=== PATIENT | male | born 1970 | race Caucasian/White ===

== ENCOUNTER 2024-12-14 20:28 | Inpatient (IN) | payer SELFPAY ==
--- NOTE | ~2024-12-14 | XR_ITS ---
XR chest 1V portable Ordering provider: Orlando George MD History: 54 years Male with . cp . Comparison: None. FINDINGS: MEDIASTINUM: The cardiac silhouette is slightly enlarged. Congestive [place]. LUNGS: No effusions or pneumothorax. Bilateral interstitial thickening. OTHER: No free air under the diaphragm. IMPRESSION: Cardiomegaly with congestive [place]. Interstitial thickening bilaterally which may indicate pneumonitis versus edema. Clinical correlation advised. Reviewed, dictated and finalized at location A. TABLE OPERATOR IMPRESSION: Cardiomegaly with congestive [place]. Interstitial thickening bilaterally which may indicate pneumonitis versus edema . Clinical correlation advised.
--- NOTE | 2024-12-14 20:30 | ECG_ITS ---
Test Date: 2024-12-14 20:34:52 Measurements Intervals [place] Rate: 62 P: 46 [place]: 153 QRS: 32 QRSD: 122 T: 41 QT: 377 QTc: 386 Interpretive Statements SINUS RHYTHM ACUTE INFEROLATERAL ST SEGMENT ELEVATION CA ABNORMAL ECG No previous ECG available for comparison Electronically Signed On 12-15-2024 15:41:24 ASSISTANT SUPERINTENDENT FOR CURRICULUM by Simba Barakat M.D.
--- NOTE | 2024-12-14 20:42 | ED.GENADULT ---
HPI - General Adult General Chief complaint: Chest Pain Stated complaint: CP Time Seen by Provider: 12/14/24 20:45 History of Present Illness HPI narrative: Patient is a 54-year-old gentleman presents emergency department chief complaint of chest pain. Patient reports that his episode today started about 15 minutes prior to arrival patient describes as heaviness in the middle portion of his chest reports he has a tingling sensation in his left arm and into his left jaw the patient states that he has no prior history of AK does report that he smokes cigarettes and reports that yesterday he had an episode at home that lasted for a few minutes mom similar to this that resolved the patient states that the pain is continual at this time not resolved by anything. Related Data Allergies Allergy/AdvReac Type Severity Reaction Status Date / Time No Known Allergies Allergy Verified 12/14/24 20:28 Review of Systems Review of Systems: A 10 system review of systems was completed on the patient and is negative except for what is stated in the HPI. Nursing and ancillary documentation was reviewed. Exam Narrative: GENERAL: Well-appearing, well-nourished, and in no acute distress. HEAD: Normocephalic, atraumatic. EYES: PERRLA and EOMI. ENT: Nares clear, no rhinorrhea or epistaxis. Mucous membranes moist. NECK: Supple. CHEST: Clear to auscultation. No respiratory distress. HEART: Regular rate and rhythm. No murmur heard. Normal peripheral pulses. ABDOMEN: Soft, nontender, nondistended, normal active bowel sounds. EXTREMITIES: Normal range of motion. No edema. SKIN: Warm, dry, no rash. NEURO: No focal deficits. Alert and oriented x3. PSYCH: Normal mood and affect. Medical Decision Making [facility] Narrative Medical decision making narrative: Differential diagnosis includes ST-elevation AK, ACS, NSTEMI EKG showed evidence of acute ST-elevation AK. The case was discussed with interventional cardiology who will be in bound the patient was given 324 mg of aspirin 180 of Brilinta and 5000 units of heparin per Cardiology. The patient was given 4 mg of morphine for pain Critical Care Time Critical Care Time Critical Care Time: Yes Total Critical Care Time: 35 Discharge Plan Discharge Clinical Impression: Acute ST elevation myocardial infarction Patient Language: Romansh Follow-up/Referrals: PHYSICIAN NOT ON STAFF,NONSTAFF [Primary Care Provider] -
[2024-12-14 20:44] VITALS: BP 148/107; PULSE 81; PULSE 85; RESP 11; O2SAT 100
--- OUTSIDE RECORDS SUMMARY | 2024-12-14 20:44 | XMS_ITS | Continuity of Care Document ---
Author Organization [facility] nters Address [address] [place] [address] Phone Care Team Providers Care Etch Operator Semiconductor Wafers Name Role Phone Ramin Bethea MD Unavailable Unavailable Allergies, Adverse Reactions, Alerts Substance Reaction Status Criticality No Known Allergies Active No Inform ation Medications Medication Instructions Dosage Effective Dates (start - stop) Status Comments TobraDex 0.3 %-0.1 % eye ointment apply by ophthalmic route 2 times every day a small amount onto the affected eyelids(s) - No Longer Active Procedures Procedure Date OV EST MODERATE PREV VISIT, [facility], AGE 40-64 Advance Directives Directive Yes / No Effective Date File Name No Information Encounters Encounter Description Practice Location Reason(s) For Visit Diagnoses Date Provider Providers Copied on Encounter [facility], [address], [place], [place], [id number], tel:[phone] [facility], [facility] No Information 1 [place]. [facility]0 [facility], [id number] [address] [place] [address], [address] [place] [address], [place]. [phone] OV EST MODERATE [facility], [address], [place], [place], [id number], tel:[phone] [facility] LS stye on RLL (chief complaint) Hordeolum externum of right lower eyelid [address] [place] [address], [id number] [address] [place] [address], [address] [place] [address], [place]. tel:[phone] PREV VISIT, NEW, AGE 40-64 [facility], [address], [place], [place], [id number], [place] [phone] [facility] LS wellness exam (chief complaint)He alth Maintenance (chief complaint) Encounter for wellness examinationScre ening for colon cancerSmoker [place]. [address] [facility], [id number] 0NS, [place], [place], [id number], [place]. tel:[phone] Family History Family Member Type Diagnosis Age At Onset No Information Payers Payer name Insurance type Covered democrat ID Man yang(s) Sliding Fee A [place] [id number] Social History Type Description Quantity Date Captured Comments Alcohol Use Details Unknown Caffeine Use Details Unknown Tobacco Use Status Smoking Status No Information Sex Male Sexual Orientation Straight or heterosexual Gender Identity Male Chief Complaint And Reason For Visit No Information Reason For Referral Reason For Referral No Information Plan Of Treatment Date Type Action Status Goal HIV Ab. Due on d ue Goal BMP. Due on due Goal Colonoscopy. Due on due Goal Colon Screening (fecal occul t). Due on due Goal Dental Exam. Due on due Goal COPD SCREENING. Due on due Goal PHQ-9. Due on du e Goal Hep C Ab. Due on due Goal Colon Screening (fecal occul t). Due on due Goal Colonoscopy. Due on due Goal HIV Ab. Due on d ue Goal Hep C Ab. Due on due Goal PHQ-9. Due on du e Goal COPD SCREENING. Due on due Goal Dental Exam. Due on due Goal Dental Exam. Due on due Goal Colon Screening (fecal occul t). Due on due Goal Colonoscopy. Due on due Goal HIV Ab. Due on d ue Goal COPD SCREENING. Due on due Goal PHQ-9. Due on du e Goal Hep C Ab. Due on due Goal Tobacco cessation counseling completed History Of Present Illness Encounter Date Complaint History Of Prese nt Illness stye on RLL The 50 year old male presents for evaluation of stye on RLL in the right eye. Started about a week ago, +Crust in the morning. wellness exam pt requesting pr ostate test. Wants check up no regular PCP, no medical exam for years.No significant PMH/PSH. No active c/o. positive smoker < 1ppd, neg ETOH. Goes to gym 3-4 times a week, regular aerobic exercise program. general diet.Nocturia x 1 Health Maintenance vaccines duec olon due Functional Status Date Functional Assessmen t No Information Instructions Date Instruction Carter gregory Return in 1-2 weeks for a follow-up exam with Dr. Weston Related to Hordeolum externum of right lower eyelid Impression/Plan Related to Horde olum externum of right lower eyelid Advised about eating nutritious foods, getting adequate sleep, limiting screen time on phone, tablets and TV to 2 hours maximum per day, regular aerobic exercise, avoiding cigarettes, alcohol and drugs, illegal supplements, wearing seat belts, and practicing safe sex. Related to Encounter for wellness examination Assessments Type Assessment Date No Information Patient Care Teams Name Effective Dates (start - stop) Status Members No Information
--- OUTSIDE RECORDS SUMMARY | 2024-12-14 20:44 | XMS_ITS | Patient Health Record ---
Author Organization [facility] Address [address] [place] [address] Support Name Relationship Address Phone POLLYTERESA KOKO Emergency Contact [address] [place] [address] Fredy Hemphill Guarantor Unknown [phone] Allergies No Known Allergies Reason For Referral No Information Social History Tobacco Use: Social History Observation Description Date Details (start date - stop date) Current Smoker NA - NA Smoking Question Answer Notes Are you a: current smoker Plan Of Treatment No Information
[2024-12-14 20:47] VITALS: O2SAT 99
[2024-12-14 20:47] LABS: Basophils Percent Auto 0.2 % (0.2-1.2); Eosinophils Absolute Auto 0.1 K/mm3 (0-0.3); Eosinophils Percent Auto 0.6 % (0-4.4); Hematocrit 43.7 % (42.0-52.0); Immature Granulocyte Absolute 0.04 K/mm3 (0.00-0.031); Immature Granulocyte Percent A 0.3 % (0-0.5); Lymphocytes Absolute Auto 4.82 K/mm3 (0.9-3.2); Lymphocytes Percent Auto 37.9 % (18.3-44.2); Mean Corpuscular HGB Conc 34.3 g/dl (32-36); Mean Corpuscular Hemoglobin 29.6 pg (26-34); Mean Corpuscular Volume 86.4 fl (80-100); Mean Platelet Volume 11.6 fl (7.4-10.4); Monocytes Absolute Auto 0.9 K/mm3 (0.1-0.6); Monocytes Percent Auto 7.3 % (2.6-8.5); Neutrophils Absolute Auto 6.8 K/mm3 (1.3-6.7); Neutrophils Percent Auto 53.7 % (45.5-73.1); Platelet Count Result 223 k/mm3 (150-375); Red Blood Count 5.06 M/mm3 (4.6-6.20); Red Cell Distribution Width 12.1 % (11.5-14.5); White Blood Count 12.7 K/mm3 (4.5-10.0)
[2024-12-14] MEDS: ASPIRIN 81 MG CHEWABLE TABLET 324 MG PO (20:47)
[2024-12-14] MEDS: MORPHINE SULFATE (*CRX) 4 MG/ML INJ (20:47)
[2024-12-14] MEDS: HEPARIN SODIUM 5,000 UNITS/ML VIAL 5000 UNITS IV PUSH (20:51)
[2024-12-14] MEDS: TICAGRELOR 90 MG TABLET 180 MG PO (20:51)
[2024-12-14 20:58] LABS: Alanine Aminotransferase 52 U/L (6-50); Albumin Level 4.8 g/dL (3.5-5.1); Alkaline Phosphatase 111 U/L (38-126); Anion Gap 14 mmol/L (4-12); Aspartate Amino Transferase 37 U/L (17-59); Bilirubin,Total 0.5 mg/dL (0.2-1.3); Blood Urea Nitrogen 17 mg/dL (9-20); Calcium 9.6 mg/dL (8.4-10.2); Carbon Dioxide 25 mmol/L (22-30); Chloride 103 mmol/L (98-107); Estimated CRCL calculation 87 ml/min; Estimated Glomerular Filt Rate > 60; Glucose 123 mg/dL (65-110); INR 0.9; Lipase 78 U/L (23-300); Potassium 3.4 mmol/L (3.4-5.0); Prothrombin Time 11.9 Seconds (11.1-14.7); Sodium 142 mmol/L (137-145)
[2024-12-14 20:59] LABS: Partial Thromboplastin Time 22.8 Seconds (22.3-36.8)
[2024-12-14] MEDS: MORPHINE SULFATE (*CRX) 4 MG/ML INJ IV PUSH (21:04)
[2024-12-14] MEDS: HYDROmorphone HCL INJ (*CRX) 1 MG/ML SYR IV PUSH (21:23)
--- NOTE | 2024-12-14 21:34 | PM.IMHP ---
H&P: HPI History of Present Illness Date/Time: 12/14/24 21:34 Chief Complaint: Chest pain Narrative: Fredy is a 54 year old male smoker who presented to [facility] ER with chest pain that began 15 minutes prior to presentation. EKG in the ED shows inferolateral ST elevations with reciprocal depressions. STEM team activated. Review of Systems Cardiovascular: Cardiovascular: Reports as per HPI Meds Home Medications and Allergies Allergies Allergy/AdvReac Type Severity Reaction Status Date / Time No Known Allergies Allergy Verified 12/14/24 20:28 Vital Signs Vital Signs - 24 hr 12/14/24 20:44 12/14/24 20:44 12/14/24 20:44 Pulse Rate 85 81 Respiratory Rate 11 L Blood Pressure 148/107 H Pulse Oximetry 100 100 Oxygen Delivery Room Air Oxygen Flow Rate 12/14/24 20:47 Pulse Rate Respiratory Rate Blood Pressure Pulse Oximetry 99 Oxygen Delivery Nasal Cannula Oxygen Flow Rate 2 Exam Const: General: no acute distress Resp: Effort & Inspection: normal respiratory effort Cardio: Rate: regular rate Rhythm: regular rhythm Skin: General skin exam: normal color Neuro: Speech: normal speech Psych: Mental Status: mental status grossly normal Affect: normal affect H&P: Results Labs Labs: Short CBC 12/14/24 Range/Units 20:42 WBC 12.7 H (4.5-10.0) K/mm3 Hgb 15.0 (14.0-18.0) g/dL Hct 43.7 (42.0-52.0) % Plt Count 223 (150-375) k/mm3 BMP 12/14/24 20:42 Sodium 142 Potassium 3.4 Chloride 103 Carbon Dioxide 25 BUN 17 Creatinine 0.97 Glucose 123 H Calcium 9.6 Cardiac Enzymes 12/14/24 Range/Units 20:42 Troponin I 0.039 H* (0.000-0.034) ng/mL Liver Function 12/14/24 Range/Units 20:42 Total Bilirubin 0.5 (0.2-1.3) mg/dL AST 37 (17-59) U/L ALT 52 H (6-50) U/L Alkaline Phosphatase 111 (38-126) U/L Albumin 4.8 (3.5-5.1) g/dL Assessment and Plan Assessment and plan (1) Acute ST elevation myocardial infarction: Code(s): I21.3 - ST elevation (STEMI) myocardial infarction of unspecified site Status: Acute Assessment and Plan: Proceed with emergent cardiac catheterization. ASA, Brilinta, Heparin bolus given in the ED. Further recommendations and plan pending results of [facility].
--- NOTE | 2024-12-14 21:36 | P.SEDATION_ITS ---
Moderate Sedation Note-Pt Data Patient Data Diagnosis: STEMI Present Complaint: STEMI Procedure to be performed/Plan: Primary PCI Allergies Allergy/AdvReac Type Severity Reaction Status Date / Time No Known Allergies Allergy Verified 12/14/24 20:28 Current Medications: Active Medications Hydromorphone HCl (Hydromorphone Hcl Inj (*Crx) 1 Mg/Ml Syr) 1 mg IV PUSH ONCE STA Stop: 12/14/24 21:22 Last Admin: 12/14/24 21:23 Dose: 1 mg Perflutren Lipid Microsphere (Perflutren Lipid Microspheres 1.5 Ml Vial Diluted To 10 Ml Total Volume) 0 ml IV PUSH ONCE PRN; Protocol PRN Reason: adequate visualization Stop: 12/17/24 21:32 Sedation/Anesthesia: No previous sedation/anesthesia problems (including family history). Mod Sed Physical Exam Physical Exam Pre Procedural Exam: Normal: Lungs, Heart Rate, Heart Rhythm, Extremities and Skin and Variation: Appearance (In no acute distresss) Hours since solid foods: 0 Hours since liquid intake: 0 Mallampati Classification: class III Internal Medicine - PN: Obj Da Vital Signs Vital Signs: Vital Signs - 24 hr 12/14/24 20:44 12/14/24 20:44 12/14/24 20:44 Pulse Rate 85 81 Respiratory Rate 11 L Blood Pressure 148/107 H Pulse Oximetry 100 100 Oxygen Delivery Room Air Oxygen Flow Rate 12/14/24 20:47 Pulse Rate Respiratory Rate Blood Pressure Pulse Oximetry 99 Oxygen Delivery Nasal Cannula Oxygen Flow Rate 2 Meds/Results Medications: Active Medications Generic Name Dose Route Start Last Admin Trade Name Freq PRN Reason Stop Dose Admin Hydromorphone HCl 1 mg 12/14/24 21:21 12/14/24 21:23 Hydromorphone Hcl Inj (*Crx) 1 Mg/Ml Syr IV PUSH 12/14/24 21:22 1 mg ONCE STA Administration Perflutren Lipid Microsphere 0 ml 12/14/24 21:32 Perflutren Lipid Microspheres 1.5 Ml Vial Diluted To 10 Ml Total Volume IV PUSH 12/17/24 21:32 ONCE PRN adequate visualization Protocol Radiology Results: ITS Impressions Chest X-Ray 12/14/24 20:56 IMPRESSION: Cardiomegaly with congestive [place]. Interstitial thickening bilaterally which may indicate pneumonitis versus edema. Clinical correlation advised. Labs 12/14/24 20:42 12/14/24 20:42 Labs: Laboratory Results - last 24 hr 12/14/24 20:42 WBC 12.7 H RBC 5.06 Hgb 15.0 Hct 43.7 MCV 86.4 MCH 29.6 MCHC 34.3 RDW 12.1 Plt Count 223 MPV 11.6 H Immature Gran % (Auto) 0.3 Neut % (Auto) 53.7 Lymph % (Auto) 37.9 [place] % (Auto) 7.3 Eos % (Auto) 0.6 Baso % (Auto) 0.2 Lymph # (Auto) 4.82 H [place] # (Auto) 0.9 H Eos # (Auto) 0.1 Baso # (Auto) 0.0 Abs Immat Gran (auto) 0.04 H Absolute Neuts (auto) 6.8 H Absolute Nucleated RBC 0.000 Nucleated RBC % 0.0 PT 11.9 INR 0.9 APTT 22.8 Sodium 142 Potassium 3.4 Chloride 103 Carbon Dioxide 25 Anion Gap 14 H BUN 17 Creatinine 0.97 Estim Creat Clear Calc 87 Estimated GFR > 60 Glucose 123 H Calcium 9.6 Total Bilirubin 0.5 AST 37 ALT 52 H Alkaline Phosphatase 111 Troponin I 0.039 H* Total Protein 8.0 Albumin 4.8 Lipase 78 ASA Classification/Sedation ASA Classification/Sedation ASA Class: IV Emergent: Yes Risks: Risks, benefits and alternatives explained and patient/family accepted plan for sedation. Patient re-evaluated immediately prior to sedation.
[2024-12-14 21:47] LABS: Cholesterol 271 mg/dL (0-200); HDL Direct 33 mg/dL; Triglycerides 500 mg/dL (<150)
[2024-12-14 21:49] LABS: Hemoglobin A1C 5.7 % (<5.7)
[2024-12-14 21:57] LABS: LDL Cholesterol Direct 137 mg/dL
--- NOTE | 2024-12-14 23:01 | WPDCARDPROC ---
Cardiac Cath Procedure Note Date of procedure:: 12/14/24 Performing physician:: CATHETERIZATION LABORATORY REPORT Procedure Date: 12/14/2024 Electrode Cleaner: Amaury Lu M.D., [facility]? Referring Physician: Benitez George. ([facility]) Anesthesia: Versed and Fentanyl were ordered and given in my presence at 21:41, procedure ended at 22:53. Supervision of nurse monitored moderate sedation with Versed and Fentanyl was provided for 72 minutes. Total of Versed 1mg and Fentanyl 50mcg were administered by the Sales & Service Associate ANDERSON Laguerre. Pre-op Diagnosis: Inferolateral STEMI Post-op Diagnosis: 1. 100% acute thrombotic occlusion in the proximal LCX with severe stenosis in the mid portion s/p successful IVUS-guided PCI with DIDI x 1 in the mid LCX (4.0mm x 30mm Orsiro DIDI. Mid portion of stent post dilated to 4.5mm and proximal portion of the stent post-dilated to 5.0mm). 2. Proximal LAD with hazy calcific 50-60% moderate stenosis. There is a small caliber diagonal branch at the level of the LAD stenosis that has significant ostial disease, however, given small size of diagonal, recommend medical management of this branch vessel disease. 3. Elevated left ventricular end-diastolic pressure of 42mmHg. 4. During diagnostic portion of angiogram prior to revascularization, patient went into VFIB. Shocked successfully x 1. Procedure(s): 1. Moderate sedation 2. Ultrasound-guided access of the right radial artery 3. Coronary angiography 4. Left heart cath 5. IVUS of LCX 6. PCI of the LCX with DIDI x 1 -- 4.0mm x 30mm Orsiro DIDI. Mid portion of stent post dilated to 4.5mm and proximal portion of the stent post-dilated to 5.0mm Access Site: Right radial artery Brief History and Clinical Indications: Patient is a 54 year old male who is referred for emergent primary PCI for inferolateral STEMI. All risks, benefits and alternatives to left heart catheterization with or without percutaneous coronary intervention was discussed at length with the patient. Risk of complications including but not limited to bleeding, infection, arrhythmia, stroke, worsening kidney function, blood loss, groin hematoma, limb loss, emergency coronary artery bypass grafting, and even were discussed with the patient and all questions were answered. The patient understood and wished to proceed. Time out called, patient name, date of , medical record number, allergies, procedure performed, identify Electrode Cleaner, patient and staff member concurred with accurate data, procedure carried on. Findings: LEFT HEART CATHETERIZATION FINDINGS: 1. Left main: The left main coronary artery is widely patent without any significant obstructive disease. 2. Left anterior descending: Proximal LAD with hazy calcific 50-60% moderate stenosis. There is a small caliber diagonal branch at the level of the LAD stenosis that has significant ostial disease 3. Left circumflex: The left circumflex artery is 100% occluded in the proximal portion. 4. Right coronary artery: The RCA has mild luminal irregularities without any significant obstructive angiographic disease. The RCA is the dominant vessel. 5. Left ventricle: A. End-diastolic pressure 42 mmHg. B. LV gram deferred. C. No significant gradient across aortic valve on catheter pullback. Description of Procedure and PCI: Informed consent signed and placed in the chart. Patient transferred to pharmacy laboratory technician room. Prepped and draped in usual sterile fashion. 2% lidocaine injected subcutaneously in right wrist area. 22-gauge venipuncture catheter used to access the right radial artery under ultrasound guidance. 6-FR slender sheath placed in right radial artery. Nitroglycerine and Verapamil were given intraarterial through the sheath. Versacore wire advanced under fluoroscopy 5F Tig 4 diagnostic catheter engaged Left Main Coronary Artery. Multiple orthogonal angiogram obtained and reviewed. During obtainment of left coronary system angios, patient went into VFIB. We shocked him x 1, and successfully restored sinus rhythm. Proceeded to carry on with cath. Had a difficult time finding RCA with the Tig catheter. Decided to proceed with PCI first and plan to obtain RCA angiogram afterwards. Angiomax was used for anticoagulation. 6F CLS 3.0 guide catheter was used to intubate the left main. 0.014 [place] coronary wire was passed in to the distal LCX. The lesion was pre-dilated with a 2.5mm x 15mm balloon inflated to high JIMY. Multiple balloon inflations done. Angio showed large thrombus burden. Integrilin bolus given. IVUS catheter advanced distal to the lesion. Reference measurements obtained. A 4.0 mm x 30 mm Orsiro DIDI was successfully deployed into mild LCX. IC NTG 200mcg was administered. IVUS catheter advanced distal to the stent. The mid and proximal portion of the stent was post-dilated with a 4.5 mm x 8 mm NC balloon inflated to high JIMY. Multiple balloon inflations done. The proximal portion of the stent was post-dilated with a 5.0 mm x 12 mm NC balloon inflated to high JIMY. Intracoronary NTG was administered Follow-up angiograms showed an excellent result Coronary wire and guide-catheter were removed Pre-procedure - DYLAN 0 flow Post-procedure - DYLAN 3 flow No angiographic complications identified. Unable to engage RCA with 5F FR 4 diagnostic catheter due to unusual takeoff. RCA engaged with 5F 3D RC diagnostic catheter. Multiple orthogonal angiogram obtained and reviewed 5F Pigtail diagnostic catheter crossed aortic valve to obtain LVEDP, LV angiogram deferred. Hemostasis was achieved by application of TR band. Disposition: ICU Plan: 1. Admit to ICU 2. ASA 81mg once daily indefinitely. 3. Brilinta 90mg BID for at least 1 year. 4. High intensity statin. 5. Will give Lasix 40mg IV x 1 given elevated LVEDP. 6. Start Toprol and Losartan. 7. Echocardiogram 8. Check lipid panel, Hgb A1c. 9. Continue aggressive medical therapy and risk factor modification. ? Amaury Lu M.D. Interventional Cardiology
--- NOTE | 2024-12-14 23:37 | ECG_ITS ---
Test Date: 2024-12-14 23:50:31 Measurements Intervals [place] Rate: 72 P: 54 UT: 173 QRS: -87 QRSD: 134 T: -14 QT: 353 QTc: 387 Interpretive Statements SINUS RHYTHM RIGHT BUNDLE BRANCH BLOCK [120+ ms QRS DURATION, UPRIGHT V1, 40+ ms S IN I/aVL/V4/V5/V6] LEFT ANTERIOR FASCICULAR BLOCK [QRS AXIS <= -45, QR IN I, RS IN II] ABNORMAL ECG Compared to ECG 12/14/2024 20:34:52 ACUTE CURRENT OF INJURY IS RESOLVED LOSS OF R-WAVE VOLTAGE IN INFERIOR LEADS NOTED Electronically Signed On 12-15-2024 15:51:35 FIRST AID DIRECTOR by Simba Barakat M.D.
[2024-12-14] MEDS: FUROSEMIDE INJ 40 MG/4 ML VIAL IV PUSH (23:43)
[2024-12-14 23:45] VITALS: BP 124/94; PULSE 72; RESP 14; O2SAT 95
[2024-12-15] VITALS (17 sets, daily range): BP systolic 106–135; BP diastolic 78–100; PULSE 66–86; RESP 11–22; TEMP 36.6–37.1; O2SAT 93–97
--- NOTE | 2024-12-15 | ECHO_ITS ---
Patient Info Name: Fredy Hemphill Age: 54 years : 1970 Gender: Male Ht: 69 in Wt: 209 lbs BSA: 2.18 m2 HR: 98 bpm BP: 126 / 89 mmHg Heart Rhythm: Sinus Rhythm Technical Quality: Fair Exam Date: 12/15/2024 7:33 AM Exam Location: Echo Lab Patient Status: Inpatient Admit Date: 12/14/2024 Staff Ordering Physician: Amaury Lu MD (dayanara/leonela) Solar Pv Installer: Reshma Velazquez RDCS Attending Provider: Amaury Lu MD (dayanara/leonela) Referring Physician: Aly COREY; Exam Type: CA echo doppler color flow Study Info Indications - STEMI Complete two-dimensional, color flow and Doppler transthoracic echocardiogram is performed. Summary 1. Complete two-dimensional, color flow and Doppler transthoracic echocardiogram is performed. 2. Normal left ventricular size and globally preserved systolic ejection fraction. 3. Hypokinesis of the lateral and posterior segments. 4. Mild sclerosis of the aortic valve overall no valve dysfunction. Left Ventricle Left ventricular chamber dimension is normal. Left ventricular systolic function is normal, estimated at 50-55%. The left ventricular diastolic function is normal. Right Ventricle Right ventricular chamber dimension is normal. Left Atria Left atrial chamber dimension is normal. Right Atria Right atrial chamber dimension is normal. Aortic Valve The aortic valve is trileaflet. There is mild aortic valve sclerosis. Pulmonic Valve The pulmonic valve is normal. Mitral Valve The mitral valve has normal leaflets. Tricuspid Valve The tricuspid valve leaflets are normal. Pericardium/Pleural The pericardium appears normal. Aorta The aortic root size at the sinus of Valsalva is normal. Left Ventricular Outflow Tract Name Value Normal LVOT 2D LVOT Diameter 2.1 cm LVOT Doppler LVOT Peak Gradient 4 mmHg LVOT Mean Gradient 2 mmHg LVOT VTI 18 cm LVOT VTI/AV VTI Ratio 0.7 LVOT Stroke Volume 60 ml LVOT CO 4.3 l/min LVOT CI 2.0 l/min/m2 Pulmonic Valve Name Value Normal RVOT Doppler RVOT Peak Gradient 1 mmHg PV Doppler PV Peak Gradient 4 mmHg Mitral Valve Name Value Normal MV Doppler MV Decel Hancock 515 cm/s2 MV PHT 41 ms MV Area (PHT) 5.4 cm2 4.0-5.0 MV Diastolic Function MV E Peak Velocity 72 cm/s MV A Peak Velocity 51 cm/s MV E/A 1.4 MV Decel Time 141 ms MV Annular TDI MV E/e' (Lateral) 7.5 <=8.0 Tricuspid Valve Name Value Normal TV Regurgitation Doppler TR Peak Velocity 179 cm/s TR Peak Gradient 13 mmHg Aortic Valve Name Value Normal AV Doppler AV Peak Velocity 146 cm/s AV Peak Gradient 9 mmHg AV Mean Gradient 4 mmHg AV VTI 28 cm AV Area (Cont Eq VTI) 2.2 cm2 >=3.0 AV Area (Cont Eq Addy) 2.3 cm2 AV Regurgitation 2D LVOT Area 3.3 cm2 Ventricles Name Value Normal LV Dimensions 2D/MM IVS Diastolic Thickness (2D) 0.9 cm 0.6-1.0 LVID Diastole (2D) 4.2 cm 4.2-5.8 LVIW Diastolic Thickness (2D) 1.0 cm 0.6-1.0 LVID Systole (2D) 3.0 cm 2.5-4.0 LVOT Diameter 2.1 cm LV Mass (2D Cubed) 127.83 g 88.00-224.00 LV Mass Index (2D Cubed) 59 g/m2 49-115 Relative Wall Thickness (2D) 0.47 LV Fractional Shortening/Ejection Fraction 2D/MM LV Fractional Shortening (2D) 28 % 25-43 LV EF (2D Teicholz) 55 % 52-72 LV Diastolic Volume (4C MOD) 174 ml LV EF (4C MOD) 61 % LV Diastolic Volume (2C MOD) 153 ml LV EF (2C MOD) 52 % LV Diastolic Volume (BP MOD) 171 ml 62-150 LV Diastolic Volume Index (BP MOD) 78 ml/m2 34-74 LV Systolic Volume (BP MOD) 73 ml 21-61 LV Systolic Volume Index (BP MOD) 34 ml/m2 11-31 LV EF (BP MOD) 57 % 52-72 LV Diastolic Length (4C) 8.8 cm LV Systolic Length (4C) 7.3 cm LV Stroke Volume (4C MOD) 117 ml Report Signatures
[2024-12-15 01:30] LABS: Troponin I > 80.000 ng/mL (0.000-0.034)
--- NOTE | 2024-12-15 02:09 | ADMGEN ---
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 Patient/family oriented to hospital policies and general routines including ID bracelet, bed and alarms, visiting hours, pain management, procedures, bathroom and other care routines, personal items, smoking policy, room service/diet, and visiting hours. Information on how to activate the Rapid Response Team has been discussed. Patient/Family are encouraged to report perceived risks to care and to ask questions if they do not understand what they are told or what they should do.
[2024-12-15 04:23] LABS: Troponin I > 80.000 ng/mL (0.000-0.034)
[2024-12-15] MEDS: HYDROcodone/acetaminophen (*CRX) 5-325 MG TABLET 1 TAB PO ×3 (05:21→16:39)
--- NOTE | 2024-12-15 08:49 | P.PNCA_ITS ---
Progress Note: A&P Assessment and Plan (1) Acute ST elevation myocardial infarction: Code(s): I21.3 - ST elevation (STEMI) myocardial infarction of unspecified site Status: Acute Plan 54-year-old man with newly diagnosed coronary disease last night presenting with ST-elevation AK. Status post emergency PCI to the circumflex successfully as detailed in the report. Patient is stable this morning and is on guideline directed medical therapy for his acute AK. spoke to the patient at length about the importance of smoking cessation. Anticipate minimum of 24-48 hours more in the hospital given very high troponin rise although he is clinically doing well Simba Barakat MD [facility] Subjective Date/time seen: Date of service: 12/15/24 08:49 Interval history: Follow-up visit in this 54-year-old man with: Newly diagnosed coronary artery disease presenting with acute inferolateral ST-elevation AK with abrupt thrombotic occlusion of the proximal circumflex. Patient underwent successful PCI last night as detailed in the engineer geophysical laboratory note. He is resting comfortably this morning and offers no complaints. Exam Const: General: comfortable and no acute distress Other: Well-developed well-nourished gentleman no apparent distress HENMT: Mouth: Yes moist mucous membranes Eyes: Sclera: sclerae normal Neck: Neck: supple and no JVD Resp: Effort & Inspection: normal respiratory effort Auscultation: clear to auscultation bilaterally Cardio: Rate: regular rate Rhythm: regular rhythm Other: No murmur gallop or rub GI: GI Palp: Yes Soft to palpation Auscultation: normal bowel sounds Skin: General skin exam: normal color Neuro: Other: Alert and oriented x3 Extrem: Other: No edema, good perfusion Objective Data Vital Signs Vital Signs: Vital Signs - 24 hr 12/14/24 20:44 12/14/24 20:44 12/14/24 20:44 Temperature Pulse Rate 85 81 Pulse Rate [Monitor] Respiratory Rate 11 L Blood Pressure 148/107 H Pulse Oximetry 100 100 Oxygen Delivery Room Air Oxygen Flow Rate 12/14/24 20:47 12/14/24 23:45 12/15/24 00:00 Temperature 37.1 C Pulse Rate 72 69 Pulse Rate [Monitor] 72 Respiratory Rate 14 20 Blood Pressure 124/94 H 129/100 H Pulse Oximetry 99 95 97 Oxygen Delivery Nasal Cannula Oxygen Flow Rate 2 12/15/24 00:00 12/15/24 00:00 12/15/24 00:00 Temperature Pulse Rate 75 Pulse Rate [Monitor] 69 Respiratory Rate Blood Pressure Pulse Oximetry 97 Oxygen Delivery Room Air Oxygen Flow Rate 12/15/24 00:15 12/15/24 02:00 12/15/24 02:00 Temperature Pulse Rate 71 71 68 Pulse Rate [Monitor] 71 Respiratory Rate 18 18 Blood Pressure 131/100 H 118/89 Pulse Oximetry 96 93 Oxygen Delivery Oxygen Flow Rate 12/15/24 04:00 12/15/24 04:07 12/15/24 04:15 Temperature 37.1 C Pulse Rate 72 71 Pulse Rate [Monitor] Respiratory Rate 18 Blood Pressure 115/86 Pulse Oximetry 94 94 Oxygen Delivery Room Air Oxygen Flow Rate 12/15/24 06:00 12/15/24 06:24 Temperature 36.6 C Pulse Rate 74 73 Pulse Rate [Monitor] Respiratory Rate 18 Blood Pressure 126/89 Pulse Oximetry 93 Oxygen Delivery Oxygen Flow Rate Intake/Output Intake/Output: Intake & Output 12/12/24 12/13/24 12/14/24 12/15/24 23:59 23:59 23:59 23:59 Output Total 1999 -1999 Meds/Results Medications: Active Medications Generic Name Dose Route Start Last Admin Trade Name Freq PRN Reason Stop Dose Admin Hydrocodone Bitart/Acetaminophen 1 tab 12/15/24 05:14 12/15/24 05:21 Hydrocodone/Acetaminophen (*Crx) 5-325 Mg Tablet PO 1 tab Q4H PRN Administration Pain Rated 4-6 Aspirin 81 mg 12/15/24 09:00 Aspirin 81 Mg Enteric Tablet PO QAM [facility] Atorvastatin Calcium 80 mg 12/15/24 09:00 Atorvastatin 40 Mg Tablet PO DAILY [facility] Losartan Potassium 25 mg 12/15/24 09:00 Losartan Potassium 25 Mg Tablet PO DAILY [facility] Metoprolol Succinate 25 mg 12/15/24 09:00 Metoprolol Succinate Ext Rel 25 Mg Tabcr PO QAM [facility] Perflutren Lipid Microsphere 0 ml 12/14/24 21:32 Perflutren Lipid Microspheres 1.5 Ml Vial Diluted To 10 Ml Total Volume IV PUSH 12/17/24 21:32 ONCE PRN adequate visualization Protocol Ticagrelor 90 mg 12/15/24 09:00 Ticagrelor 90 Mg Tablet PO Q12HR [facility] Radiology Results: ITS Impressions Chest X-Ray 12/14/24 20:56 IMPRESSION: Cardiomegaly with congestive [place]. Interstitial thickening bilaterally which may indicate pneumonitis versus edema. Clinical correlation advised. Labs Labs: Laboratory Results - last 24 hr 12/14/24 12/15/24 12/15/24 20:42 00:54 03:51 WBC 12.7 H RBC 5.06 Hgb 15.0 Hct 43.7 MCV 86.4 MCH 29.6 MCHC 34.3 RDW 12.1 Plt Count 223 MPV 11.6 H Immature Gran % (Auto) 0.3 Neut % (Auto) 53.7 Lymph % (Auto) 37.9 [place] % (Auto) 7.3 Eos % (Auto) 0.6 Baso % (Auto) 0.2 Lymph # (Auto) 4.82 H [place] # (Auto) 0.9 H Eos # (Auto) 0.1 Baso # (Auto) 0.0 Abs Immat Gran (auto) 0.04 H Absolute Neuts (auto) 6.8 H Absolute Nucleated RBC 0.000 Nucleated RBC % 0.0 PT 11.9 INR 0.9 APTT 22.8 Sodium 142 Potassium 3.4 Chloride 103 Carbon Dioxide 25 Anion Gap 14 H BUN 17 Creatinine 0.97 Estim Creat Clear Calc 87 Estimated GFR > 60 Glucose 123 H Hemoglobin A1c 5.7 Calcium 9.6 Total Bilirubin 0.5 AST 37 ALT 52 H Alkaline Phosphatase 111 Troponin I 0.039 H* > 80.000 H* D > 80.000 H* Total Protein 8.0 Albumin 4.8 Triglycerides 500 H Cholesterol 271 H LDL Cholesterol Direct 137 HDL Direct 33 Lipase 78
[2024-12-15 09:41] LABS: MRSA (PCR) NOT DETECTED (NOT DETECTE)
[2024-12-15] MEDS: LOSARTAN POTASSIUM 25 MG TABLET PO (09:48)
[2024-12-15] MEDS: METOPROLOL SUCCINATE EXT REL 25 MG TABCR PO (09:48)
[2024-12-15] MEDS: TICAGRELOR 90 MG TABLET PO ×2 (09:48→21:19)
[2024-12-15] MEDS: ASPIRIN 81 MG ENTERIC TABLET PO (09:48)
[2024-12-15] MEDS: ATORVASTATIN 40 MG TABLET 80 MG PO (09:48)
[2024-12-15] MEDS: polyethylene glycoL 3350 17 GM POWD.PACK PO (16:38)
--- NOTE | 2024-12-15 16:59 | WPDCNINT ---
Assessment and Plan Assessment and plan (1) Acute ST elevation myocardial infarction: Code(s): I21.3 - ST elevation (STEMI) myocardial infarction of unspecified site Status: Acute Assessment and Plan: 12/14: Presented with chest pain, EKG showed inferior ST-elevation myocardial injury status post PTCA/PCI with DIDI x1 to left circumflex -right radial approach, site looks good -continue guideline directed medical therapy for acute RI -cardiology following the patient (2) Tobacco abuse: Code(s): Z72.0 - Tobacco use Status: Acute Assessment and Plan: Counseled patient on tobacco cessation Plan DVT prophylaxis: Status post cardiac catheterization Stress ulcer prophylaxis: Not indicated Nutrition: Heart healthy diet Code Status: Full code Critical Care Time Spent: 47 minutes Due to a high probability of clinically significant, life threatening deterioration, the patient required my highest level of preparedness to intervene emergently and I personally spent this critical care time directly and personally managing the patient. This critical care time included obtaining a history; examining the patient; pulse oximetry; ordering and review of studies; arranging urgent treatment with development of a management plan; evaluation of patient's response to treatment; frequent reassessment; and discussions with other providers. It was exclusive of separately billable procedures and treating other patients and teaching time. Please see Assessment and Plan section and the rest of the note for further information on patient assessment and treatment This dictation may have been done utilizing a voice recognition system. Attempts have been made to correct errors. However, there may be uncorrected grammatical, spelling, and recognitions errors present. 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 Episode started 15 minutes prior to arrival to the ED, described the chest pain as heaviness the middle portion of his chest, with radiation and tingling sensation in the left arm and left jaw. Also complained of shortness of breath. EKG showed inferolateral ST elevation with reciprocal depressions. STEMI team was activated, patient taken to the cardiac concrete plant laborer, status post PTCA/PCI with DIDI x1 to left circumflex. Patient was transferred to the ICU for further management Patient seen examined this morning in the ICU, is comfortable, denies any chest pain, shortness of breath, abdominal pain, nausea vomiting at this time. Hemodynamically stable, patient has had some runs of reperfusion V-tach Review of Systems Review of Systems: All systems reviewed & are unremarkable except as noted in HPI and below COUNTS INCLUDE 234 BEDS AT THE [facility] Social History Social History Smoking packs per day: 1.5 Smoking cigarettes per day: 30.0 Years smoked: 30 Smoking pack-years: 45.00 Smoking status: Heavy tobacco smoker Tobacco type: cigarettes Alcohol intake: never Substance use: never Do You Feel Safe in your Home?: Yes Lack of Transportation: YES Lack of Food: Never True Current Housing: I Have Housing Concerned About Future Housing: No Difficulty Paying Gas/Electric Bills: No Difficulty Paying for Meds: No Currently Unemployed: No Education: Bachelor's Degree Difficulty w/ Childcare or Family Care: No Spiritual care concerns: No Meds Home Medications and Allergies Home Medications ?Medication ?Instructions ?Recorded ?Confirmed ?Type No Home Medications 12/15/24 12/15/24 History Allergies Allergy/AdvReac Type Severity Reaction Status Date / Time No Known Allergies Allergy Verified 12/14/24 20:28 Vital Signs Vital Signs - 24 hr 12/14/24 20:44 12/14/24 20:44 12/14/24 20:44 Temperature Pulse Rate 85 81 Pulse Rate [Monitor] Respiratory Rate 11 L Blood Pressure 148/107 H Pulse Oximetry 100 100 Oxygen Delivery Room Air Oxygen Flow Rate 12/14/24 20:47 12/14/24 23:45 12/15/24 00:00 Temperature 98.8 F Pulse Rate 72 69 Pulse Rate [Monitor] 72 Respiratory Rate 14 20 Blood Pressure 124/94 H 129/100 H Pulse Oximetry 99 95 97 Oxygen Delivery Nasal Cannula Oxygen Flow Rate 2 12/15/24 00:00 12/15/24 00:00 12/15/24 00:00 Temperature Pulse Rate 75 Pulse Rate [Monitor] 69 Respiratory Rate Blood Pressure Pulse Oximetry 97 Oxygen Delivery Room Air Oxygen Flow Rate 12/15/24 00:15 12/15/24 02:00 12/15/24 02:00 Temperature Pulse Rate 71 71 68 Pulse Rate [Monitor] 71 Respiratory Rate 18 18 Blood Pressure 131/100 H 118/89 Pulse Oximetry 96 93 Oxygen Delivery Oxygen Flow Rate 12/15/24 04:00 12/15/24 04:07 12/15/24 04:15 Temperature 98.8 F Pulse Rate 72 71 Pulse Rate [Monitor] Respiratory Rate 18 Blood Pressure 115/86 Pulse Oximetry 94 94 Oxygen Delivery Room Air Oxygen Flow Rate 12/15/24 06:00 12/15/24 06:24 12/15/24 08:00 Temperature 98 F 98.0 F Pulse Rate 74 73 72 Pulse Rate [Monitor] Respiratory Rate 18 16 Blood Pressure 126/89 128/95 H Pulse Oximetry 93 96 Oxygen Delivery Oxygen Flow Rate 12/15/24 08:00 12/15/24 08:00 12/15/24 09:48 Temperature Pulse Rate 70 67 86 Pulse Rate [Monitor] Respiratory Rate 17 Blood Pressure Pulse Oximetry 95 Oxygen Delivery Room Air Oxygen Flow Rate 12/15/24 10:00 12/15/24 10:00 12/15/24 12:00 Temperature 98.1 F 97.9 F Pulse Rate 70 67 70 Pulse Rate [Monitor] Respiratory Rate 17 16 Blood Pressure 130/93 H 123/81 Pulse Oximetry 95 95 Oxygen Delivery Oxygen Flow Rate 12/15/24 12:00 12/15/24 12:00 12/15/24 14:00 Temperature Pulse Rate 71 70 Pulse Rate [Monitor] Respiratory Rate Blood Pressure Pulse Oximetry 96 Oxygen Delivery Room Air Oxygen Flow Rate 12/15/24 14:00 12/15/24 16:00 Temperature 98.6 F 98.4 F Pulse Rate 70 68 Pulse Rate [Monitor] Respiratory Rate 17 17 Blood Pressure 135/92 H 120/78 Pulse Oximetry 94 97 Oxygen Delivery Oxygen Flow Rate Exam Narrative: General: Pleasant gentleman in no acute distress HEENT:? Pupils equal and reactive, sclera is clear Neck:? Supple Respiratory:? Clear to auscultation bilaterally, no wheezing, adequate air entry Cardiac:? S1-S2 was normal, regular rate and rhythm, monitor sometime shows few beats of V-tach Abdomen:? Soft, nontender, nondistended, normoactive bowel sound Extremities:? Right radial site without evidence of ecchymosis or hematoma. Palpable right radial pulse Neuro:? Patient is awake, alert, oriented, nonfocal Skin:? She no skin lesions noted Psych:? Normal mentation and affect Results Labs 12/14/24 20:42 12/14/24 20:42 Labs: Short CBC 12/14/24 Range/Units 20:42 WBC 12.7 H (4.5-10.0) K/mm3 Hgb 15.0 (14.0-18.0) g/dL Hct 43.7 (42.0-52.0) % Plt Count 223 (150-375) k/mm3 BMP 12/14/24 20:42 Sodium 142 Potassium 3.4 Chloride 103 Carbon Dioxide 25 BUN 17 Creatinine 0.97 Glucose 123 H Calcium 9.6 Cardiac Enzymes 12/14/24 12/15/24 12/15/24 Range/Units 20:42 00:54 03:51 Troponin I 0.039 H* > 80.000 H* D > 80.000 H* (0.000-0.034) ng/mL Liver Function 12/14/24 Range/Units 20:42 Total Bilirubin 0.5 (0.2-1.3) mg/dL AST 37 (17-59) U/L ALT 52 H (6-50) U/L Alkaline Phosphatase 111 (38-126) U/L Albumin 4.8 (3.5-5.1) g/dL Quality If No VTE Prophylaxis Answer both mechanical and pharmacologic: Reason no pharmacologic proph: medical contraindication active bleeding/bleeding risk Hospitalist MIPS Advance Care Plan I have confirmed that the patient's Advanced Care Plan is present, code status is documented, or surrogate decision maker is listed in patient medical record.: Yes Medication Reconciliation I have utilized all available resources to obtain, update and review the patients current medications (includes all prescriptions, OTC, herbals, cannabis, and nutritional supplements).: Yes
[2024-12-15 17:24] LABS: Anion Gap 11 mmol/L (4-12); Blood Urea Nitrogen 14 mg/dL (9-20); Calcium 9.4 mg/dL (8.4-10.2); Carbon Dioxide 20 mmol/L (22-30); Chloride 106 mmol/L (98-107); Estimated CRCL calculation 98 ml/min; Estimated Glomerular Filt Rate > 60; Glucose 116 mg/dL (65-110); Magnesium 2.2 mg/dL (1.6-2.3); Potassium 4.2 mmol/L (3.4-5.0); Sodium 137 mmol/L (137-145)
[2024-12-16] VITALS: BP 105/75; PULSE 70; RESP 19; TEMP 36.9; O2SAT 95
[2024-12-16 03:00] VITALS: BP 100/78; PULSE 72; RESP 19; O2SAT 95
--- NOTE | 2024-12-16 03:01 | PC.NURSE ---
Daylight Savings Time For Daylight Savings Time Ending in the Fall - Clocks are moved back. For Daylight Savings Time Beginning in the Spring - Clocks are moved ahead. For [facility], the time of change occurs at 0200 hrs. Time is taken from the windows server architect. This entry on the patient's chart recognizes the change in time reflected during documentation. Example: 2 entries for vital signs may be charted for 0200 hrs.
[2024-12-16 03:36] LABS: Basophils Percent Auto 0.2 % (0.2-1.2); Eosinophils Percent Auto 0.4 % (0-4.4); Hematocrit 39.5 % (42.0-52.0); Hemoglobin 13.6 g/dL (14.0-18.0); Immature Granulocyte Absolute 0.03 K/mm3 (0.00-0.031); Immature Granulocyte Percent A 0.3 % (0-0.5); Lymphocytes Absolute Auto 1.87 K/mm3 (0.9-3.2); Lymphocytes Percent Auto 17.2 % (18.3-44.2); Mean Corpuscular HGB Conc 34.4 g/dl (32-36); Mean Corpuscular Hemoglobin 29.9 pg (26-34); Mean Corpuscular Volume 86.8 fl (80-100); Mean Platelet Volume 11.5 fl (7.4-10.4); Monocytes Absolute Auto 0.8 K/mm3 (0.1-0.6); Monocytes Percent Auto 7.2 % (2.6-8.5); Neutrophils Absolute Auto 8.1 K/mm3 (1.3-6.7); Neutrophils Percent Auto 74.7 % (45.5-73.1); Platelet Count Result 157 k/mm3 (150-375); Red Blood Count 4.55 M/mm3 (4.6-6.20); Red Cell Distribution Width 12.3 % (11.5-14.5); White Blood Count 10.9 K/mm3 (4.5-10.0)
[2024-12-16 03:47] LABS: Alanine Aminotransferase 108 U/L (6-50); Albumin Level 4.2 g/dL (3.5-5.1); Alkaline Phosphatase 87 U/L (38-126); Anion Gap 7 mmol/L (4-12); Aspartate Amino Transferase 372 U/L (17-59); Bilirubin,Total 1.3 mg/dL (0.2-1.3); Blood Urea Nitrogen 14 mg/dL (9-20); Calcium 9.1 mg/dL (8.4-10.2); Carbon Dioxide 25 mmol/L (22-30); Chloride 105 mmol/L (98-107); Estimated CRCL calculation 101 ml/min; Estimated Glomerular Filt Rate > 60; Glucose 120 mg/dL (65-110); Magnesium 1.9 mg/dL (1.6-2.3); Phosphorus 3.2 mg/dL (2.5-4.5); Sodium 137 mmol/L (137-145)
[2024-12-16 04:00] VITALS: BP 108/80; PULSE 69; RESP 17; TEMP 36.9; O2SAT 96
[2024-12-16 06:00] VITALS: BP 106/78; PULSE 70; RESP 18; O2SAT 96
[2024-12-16 07:59] VITALS: PULSE 77
[2024-12-16] MEDS: TICAGRELOR 90 MG TABLET PO (07:59)
[2024-12-16] MEDS: ASPIRIN 81 MG ENTERIC TABLET PO (07:59)
[2024-12-16] MEDS: METOPROLOL SUCCINATE EXT REL 25 MG TABCR PO (07:59)
[2024-12-16] MEDS: ATORVASTATIN 40 MG TABLET 80 MG PO (07:59)
[2024-12-16 08:00] VITALS: BP 112/85; PULSE 74; PULSE 82; RESP 22; TEMP 36.4; O2SAT 97
[2024-12-16] MEDS: LOSARTAN POTASSIUM 25 MG TABLET PO (08:00)
--- NOTE | 2024-12-16 08:42 | P.DS_ITS ---
DS: Admitting Diagnosis Discharge Date December 16, 2024 Admitting Diagnosis States his ST-elevation ID DS: Discharge Diagnosis Discharge Diagnosis Plan Discharge to home, follow up in office in 2-[address] Lu DS: Summary Hospital Course Reason for hospitalization: ST-elevation ID Hospital Course: This is a 54-year-old gentleman without previous significant medical history presented to the hospital the evening of admission with chest pain and acute inferolateral ST-elevation ID. STEMI team was activated he was brought immediately to the cardiac catheterization lab where he underwent emergency angiography. He was found to have total occlusion of his proximal circumflex which was the culprit vessel. There was no other stents significant disease. He underwent PCI with angioplasty and stenting of the vessel using a drug-e luting stent with an excellent anatomical result. Details of this are all and in the cardiac laborer heading note. Following the emergency procedure the patient did very well he had some reperfusion ventricular arrhythmias in the 1st 24 hours which were asymptomatic and do not require any treatment. It should be noted that in the cardiac laborer heading he did require counter shock for ventricular fibrillation. There were no other arrhythmias of note during the hospitalization. Echocardiogram after the emergency demonstrated hypokinesia of the lateral and posterior segments but overall normal ejection fraction. He was maintained on guideline directed medical therapy. Today he is comfortable without any complaints and appears to be a good candidate for discharge. Time spent discussing smoking cessation with patient: more than 10 minutes Status at Discharge Functional status at discharge: independent ambulation Overall status at discharge: patient is back to baseline Time Spent with Patient Time attestation: Total time spent providing and/or coordinating discharge services: Time spent: Less than 30 minutes Exam Const: General: comfortable and no acute distress HENMT: Mouth: Yes moist mucous membranes Eyes: Sclera: sclerae normal Neck: Neck: supple and no JVD Resp: Effort & Inspection: normal respiratory effort Auscultation: clear to auscultation bilaterally Cardio: Rate: regular rate Rhythm: regular rhythm Other: No murmur no gallop GI: GI Palp: Yes Soft to palpation Auscultation: normal bowel sounds Skin: General skin exam: normal color Neuro: Other: Alert and oriented x3 Extrem: General: normal to inspection DS: Data Data Completed and Pending Labs on day of discharge: Labs from last 24 hours 12/16/24 12/15/24 12/15/24 03:32 15:55 08:11 WBC 10.9 H RBC 4.55 L Hgb 13.6 L Hct 39.5 L MCV 86.8 MCH 29.9 MCHC 34.4 RDW 12.3 Plt Count 157 MPV 11.5 H Immature Gran % (Auto) 0.3 Neut % (Auto) 74.7 H Lymph % (Auto) 17.2 L [place] % (Auto) 7.2 Eos % (Auto) 0.4 Baso % (Auto) 0.2 Lymph # (Auto) 1.87 [place] # (Auto) 0.8 H Eos # (Auto) 0.0 Baso # (Auto) 0.0 Abs Immat Gran (auto) 0.03 Absolute Neuts (auto) 8.1 H Absolute Nucleated RBC 0.000 Nucleated RBC % 0.0 Sodium 137 137 Potassium 4.0 4.2 Chloride 105 106 Carbon Dioxide 25 20 L Anion Gap 7 11 BUN 14 14 Creatinine 0.83 0.86 Estim Creat Clear Calc 101 98 Estimated GFR > 60 > 60 Glucose 120 H 116 H Calcium 9.1 9.4 Phosphorus 3.2 Magnesium 1.9 2.2 Total Bilirubin 1.3 AST 372 H ALT 108 H Alkaline Phosphatase 87 Total Protein 7.0 Albumin 4.2 Nasal MRSA (PCR) Not detected Discharge Plan Discharge Attending physician on discharge: Amaury Lu Discharging Clinician: Simba Barakat Patient Disposition: Home, Self-Care Activity: other - see discharge instructions Diet: heart healthy Patient Instructions: Antibiotic Form, Ticagrelor (By mouth), Heart Attack (GEN), Heart Healthy Diet (GEN), Acute Coronary Syndrome (GEN), Left Heart Catheterization (GEN) Patient Language: American Stand Alone Forms: General Discharge Information Follow-up/Referrals: Amaury Lu MD [Physician] - Discharge Medications: New atorvastatin 40 mg Tablet 80 mg PO DAILY Qty: 90 5RF aspirin 81 mg Tablet,Delayed Release (Dr/Ec) 81 mg PO QAM Qty: 30 5RF losartan 25 mg Tablet 25 mg PO DAILY Qty: 90 5RF metoprolol succinate [Toprol XL] 25 mg Tablet Extended Release 24 Hr 25 mg PO QAM Qty: 90 5RF Brilinta 90 mg Tablet 90 mg PO Q12HR Qty: 180 5RF Date of admission: 12/14/24 21:57 Primary Care Provider: PHYSICIAN NOT ON STAFF,NONSTAFF Admitting Provider: Amaury Lu Attending physician on admission: Amaury Lu Condition: Improved
--- NOTE | 2024-12-16 09:56 | WPDINTPN ---
Progress Note: A&P Assessment and Plan (1) Acute ST elevation myocardial infarction: Code(s): I21.3 - ST elevation (STEMI) myocardial infarction of unspecified site Status: Acute Assessment and Plan: 12/14: Presented with chest pain, EKG showed inferior ST-elevation myocardial injury status post PTCA/PCI with DIDI x1 to left circumflex -right radial approach, site looks good -continue guideline directed medical therapy for acute PR -cardiology following the patient -continue atorvastatin, aspirin, losartan, metoprolol, Brilinta 12/15/2024: Echocardiogram Summary 1. Complete two-dimensional, color flow and Doppler transthoracic echocardiogram is performed. 2. Normal left ventricular size and globally preserved systolic ejection fraction. 3. Hypokinesis of the lateral and posterior segments. 4. Mild sclerosis of the aortic valve overall no valve dysfunction. (2) Tobacco abuse: Code(s): Z72.0 - Tobacco use Status: Acute Assessment and Plan: Counseled patient on tobacco cessation Plan DVT prophylaxis: Status post cardiac catheterization Stress ulcer prophylaxis: Not indicated Nutrition: Heart healthy diet Code Status: Full code Critical Care Time Spent: 31 minutes Due to a high probability of clinically significant, life threatening deterioration, the patient required my highest level of preparedness to intervene emergently and I personally spent this critical care time directly and personally managing the patient. This critical care time included obtaining a history; examining the patient; pulse oximetry; ordering and review of studies; arranging urgent treatment with development of a management plan; evaluation of patient's response to treatment; frequent reassessment; and discussions with other providers. It was exclusive of separately billable procedures and treating other patients and teaching time. Please see Assessment and Plan section and the rest of the note for further information on patient assessment and treatment This dictation may have been done utilizing a voice recognition system. Attempts have been made to correct errors. However, there may be uncorrected grammatical, spelling, and recognitions errors present. Subjective Date/time seen: 12/16/24 09:56 Interval history: Reason for consult: ST-elevation PR status post PTCA/PCI with DIDI x1 to left circumflex 12/16/2024: Patient seen and examined the ICU, denies any chest pain, shortness of breath, abdominal pain, nausea, vomiting. Hemodynamically stable, no issues overnight Review of Systems Review of Systems: All systems reviewed & are unremarkable except as noted in HPI and below Exam Narrative: General: Pleasant gentleman in no acute distress HEENT:? Pupils equal and reactive, sclera is clear Neck:? Supple Respiratory:? Clear to auscultation bilaterally, no wheezing, adequate air entry Cardiac:? S1-S2 was normal, regular rate and rhythm, monitor sometime shows few beats of V-tach Abdomen:? Soft, nontender, nondistended, normoactive bowel sound Extremities:? Right radial site without evidence of ecchymosis or hematoma. Palpable right radial pulse Neuro:? Patient is awake, alert, oriented, nonfocal Skin:? She no skin lesions noted Psych:? Normal mentation and affect Objective Data Vital Signs Vital Signs: Vital Signs - 24 hr 12/15/24 09:48 12/15/24 10:00 12/15/24 10:00 Temperature 98.1 F Pulse Rate 86 70 67 Respiratory Rate 17 Blood Pressure 130/93 H Pulse Oximetry 95 Oxygen Delivery 12/15/24 12:00 12/15/24 12:00 12/15/24 12:00 Temperature 97.9 F Pulse Rate 70 71 Respiratory Rate 16 Blood Pressure 123/81 Pulse Oximetry 95 96 Oxygen Delivery Room Air 12/15/24 14:00 12/15/24 14:00 12/15/24 16:00 Temperature 98.6 F 98.4 F Pulse Rate 70 70 68 Respiratory Rate 17 17 Blood Pressure 135/92 H 120/78 Pulse Oximetry 94 97 Oxygen Delivery 12/15/24 16:00 12/15/24 16:00 12/15/24 16:00 Temperature Pulse Rate 66 66 Respiratory Rate 18 Blood Pressure 120/78 Pulse Oximetry 97 96 Oxygen Delivery Room Air 12/15/24 18:00 12/15/24 18:00 12/15/24 20:00 Temperature Pulse Rate 72 72 Respiratory Rate 22 H Blood Pressure 119/91 H Pulse Oximetry 96 Oxygen Delivery Room Air 12/15/24 20:00 12/15/24 20:00 12/15/24 22:00 Temperature 98.4 F Pulse Rate 66 66 74 Respiratory Rate 11 L Blood Pressure 106/79 Pulse Oximetry 94 Oxygen Delivery 12/15/24 22:00 12/16/24 00:00 12/16/24 00:00 Temperature Pulse Rate 74 70 Respiratory Rate 16 Blood Pressure 108/78 Pulse Oximetry 96 Oxygen Delivery Room Air 12/16/24 00:00 12/16/24 03:00 12/16/24 03:00 Temperature 98.4 F Pulse Rate 70 72 72 Respiratory Rate 19 19 Blood Pressure 105/75 100/78 Pulse Oximetry 95 95 Oxygen Delivery 12/16/24 04:00 12/16/24 04:00 12/16/24 04:00 Temperature 98.4 F Pulse Rate 69 69 Respiratory Rate 17 Blood Pressure 108/80 Pulse Oximetry 96 Oxygen Delivery Room Air 12/16/24 06:00 12/16/24 06:00 12/16/24 07:59 Temperature Pulse Rate 70 70 77 Respiratory Rate 18 Blood Pressure 106/78 Pulse Oximetry 96 Oxygen Delivery 12/16/24 08:00 12/16/24 08:00 Temperature 97.6 F Pulse Rate 82 Respiratory Rate 22 H Blood Pressure 112/85 Pulse Oximetry 97 Oxygen Delivery Room Air Intake/Output Intake/Output: Intake & Output 12/13/24 12/14/24 12/15/24 12/17/24 23:59 23:59 23:59 00:59 Intake Total 830 340 Output Total 2650 0 Balance -1820 340 Meds/Results Medications: Active Medications Generic Name Dose Route Start Last Admin Trade Name Freq PRN Reason Stop Dose Admin Hydrocodone Bitart/Acetaminophen 1 tab 12/15/24 05:14 12/15/24 16:39 Hydrocodone/Acetaminophen (*Crx) 5-325 Mg Tablet PO 1 tab Q4H PRN Administration Pain Rated 4-6 Aspirin 81 mg 12/15/24 09:00 12/16/24 07:59 Aspirin 81 Mg Enteric Tablet PO 81 mg QAM EMILY Administration Atorvastatin Calcium 80 mg 12/15/24 09:00 12/16/24 07:59 Atorvastatin 40 Mg Tablet PO 80 mg DAILY EMILY Administration Losartan Potassium 25 mg 12/15/24 09:00 12/16/24 08:00 Losartan Potassium 25 Mg Tablet PO 25 mg DAILY EMILY Administration Metoprolol Succinate 25 mg 12/15/24 09:00 12/16/24 07:59 Metoprolol Succinate Ext Rel 25 Mg Tabcr PO 25 mg QAM EMILY Administration Perflutren Lipid Microsphere 0 ml 12/14/24 21:32 Perflutren Lipid Microspheres 1.5 Ml Vial Diluted To 10 Ml Total Volume IV PUSH 12/17/24 21:32 ONCE PRN adequate visualization Protocol Polyethylene Glycol 17 gm 12/15/24 16:35 12/16/24 07:59 Polyethylene Glycol 3350 17 Gm Powd.Pack PO Not Given QAM EMILY Senna/Docusate Sodium 1 tab 12/15/24 21:00 12/15/24 21:19 Senna/Docusate Sodium Tablet PO Not Given HS EMILY Ticagrelor 90 mg 12/15/24 09:00 12/16/24 07:59 Ticagrelor 90 Mg Tablet PO 90 mg Q12HR EMILY Administration Radiology Results: ITS Impressions Chest X-Ray 12/14/24 20:56 IMPRESSION: Cardiomegaly with congestive [place]. Interstitial thickening bilaterally which may indicate pneumonitis versus edema. Clinical correlation advised. Labs Labs: Laboratory Results - last 24 hr 12/15/24 12/15/24 12/16/24 08:11 15:55 03:32 WBC 10.9 H RBC 4.55 L Hgb 13.6 L Hct 39.5 L MCV 86.8 MCH 29.9 MCHC 34.4 RDW 12.3 Plt Count 157 MPV 11.5 H Immature Gran % (Auto) 0.3 Neut % (Auto) 74.7 H Lymph % (Auto) 17.2 L [place] % (Auto) 7.2 Eos % (Auto) 0.4 Baso % (Auto) 0.2 Lymph # (Auto) 1.87 [place] # (Auto) 0.8 H Eos # (Auto) 0.0 Baso # (Auto) 0.0 Abs Immat Gran (auto) 0.03 Absolute Neuts (auto) 8.1 H Absolute Nucleated RBC 0.000 Nucleated RBC % 0.0 Sodium 137 137 Potassium 4.2 4.0 Chloride 106 105 Carbon Dioxide 20 L 25 Anion Gap 11 7 BUN 14 14 Creatinine 0.86 0.83 Estim Creat Clear Calc 98 101 Estimated GFR > 60 > 60 Glucose 116 H 120 H Calcium 9.4 9.1 Phosphorus 3.2 Magnesium 2.2 1.9 Total Bilirubin 1.3 AST 372 H ALT 108 H Alkaline Phosphatase 87 Total Protein 7.0 Albumin 4.2 Nasal MRSA (PCR) Not detected
[2024-12-18 14:42] LABS: Troponin I 0.039 ng/mL (0.000-0.034)
== END 2024-12-16 12:20 | disposition home or self-care (01) | DRG 174 ==
LOC: ANHED 22:47 → ANHICU 12-15 03:08
PROVIDERS: Internal Medicine; Physician Assistant; Admitting Provider Internal Medicine; Emergency Provider Emergency Medicine; Visit Provider Specialist
PROC: 4A023N7 Measurement of Cardiac Sampling and Pressure, Left Heart, Percutaneous Approach (ICD-10-PCS; CPT 93452; principal; 2024-12-14 21:00)
PROC: 027034Z Dilation of Coronary Artery, One Artery with Drug-eluting Intraluminal Device, Percutaneous Approach (ICD-10-PCS; 2024-12-14 21:00)
PROC: 027034Z Dilation of Coronary Artery, One Artery with Drug-eluting Intraluminal Device, Percutaneous Approach (ICD-10-PCS; 2024-12-14 21:00)
DX: I21.19 ST elevation (STEMI) myocardial infarction involving other coronary artery of inferior wall (principal); I25.10 Atherosclerotic heart disease of native coronary artery without angina pectoris; I49.01 Ventricular fibrillation; F17.210 Nicotine dependence, cigarettes, uncomplicated
CPT/HCPCS: 36415; 71045; 80048; 80053; 80061; 83036; 83690; 83735; 84100; 84484; 85025; 85610; 85730; 87641; 92978; 93005; 93306; 93458; 96374; 96375; 99285; A9270; C1725; C1753; C1769; C1874; C1887; C1894; C9606; J0583; J1171; J1327; J1644; J1940; J2003; J2250; J2270; J2305; J3010; J7040

== ENCOUNTER 2025-08-19 16:20 | Emergency (ER) | payer SELFPAY ==
--- NOTE | ~2025-08-19 | XR_ITS ---
EXAMINATION: XR chest 1V portable COMPARISON: No comparisons available. HISTORY: syncope; low bp FINDINGS: The lungs are clear, no effusion. No pneumothorax. Heart is normal size. Mediastinal and hilar contours are within normal limits. Bony thorax no acute abnormality. Miscellaneous: None Impression: No acute cardiopulmonary abnormality. Reviewed, dictated and finalized at location P. BUILDING SUPERVISOR Impression: No acute cardiopulmonary abnormality.
[2025-08-19 16:18] VITALS: BP 97/78; PULSE 96; RESP 19; O2SAT 96
--- NOTE | 2025-08-19 16:22 | ECG_ITS ---
Test Date: 2025-08-19 16:24:20 Measurements Intervals [place] Rate: 62 P: 43 DC: 164 QRS: -36 QRSD: 109 T: 13 QT: 366 QTc: 373 Interpretive Statements SINUS RHYTHM LEFT AXIS DEVIATION [QRS AXIS < -30] ST ELEVATION, PROBABLY EARLY REPOLARIZATION [ST ELEVATION WITH NORMALLY INFLECTED T-WAVE] TALL T-WAVES, SUGGESTS HYPERKALEMIA Electronically Signed On 08-20-2025 17:52:51 WELDING EQUIPMENT REPAIRER by Ramiro Marin M.D.
[2025-08-19 16:29] LABS: Hematocrit 42.1 % (42.0-52.0); Hemoglobin 13.9 g/dL (14.0-18.0); Immature Granulocyte Percent A 0.2 % (0-0.5); Lymphocytes Absolute Auto 1.95 K/mm3 (0.9-3.2); Mean Corpuscular HGB Conc 33.0 g/dl (32-36); Mean Corpuscular Hemoglobin 27.9 pg (26-34); Mean Corpuscular Volume 84.4 fl (80-100); Nucleated Red Blood Cells Absolute Auto 0.000 K/mm3 (0.0-0.012); Nucleated Red Blood Cells Perc 0.0 % (0.0-0.2); Platelet Count Result 190 k/mm3 (150-375); Red Blood Count 4.99 M/mm3 (4.6-6.20); White Blood Count 9.7 K/mm3 (4.5-10.0)
[2025-08-19 16:38] LABS: Alanine Aminotransferase 39 U/L (6-50); Albumin Level 4.7 g/dL (3.5-5.1); Alkaline Phosphatase 81 U/L (38-126); Anion Gap 8 mmol/L (4-12); Aspartate Amino Transferase 41 U/L (17-59); Bilirubin,Total 0.8 mg/dL (0.2-1.3); Blood Urea Nitrogen 14 mg/dL (9-20); Calcium 10.3 mg/dL (8.4-10.2); Carbon Dioxide 28 mmol/L (22-30); Chloride 99 mmol/L (98-107); Estimated Glomerular Filt Rate 54; Glucose 106 mg/dL (65-110); Potassium 4.9 mmol/L (3.4-5.0); Sodium 135 mmol/L (137-145); Total Protein 7.9 g/dL (6.3-8.2)
[2025-08-19 17:24] VITALS: BP 99/65; PULSE 62; RESP 18; O2SAT 97
[2025-08-19 17:51] VITALS: BP 101/66; PULSE 62; RESP 16; O2SAT 97
--- NOTE | 2025-08-19 19:17 | ED_ITS ---
HPI - SOB/Dyspnea General Chief Complaint: Shortness of Breath/Dyspnea Stated Complaint: dyspnea Time Seen by Provider: 08/19/25 18:58 Source: patient and EMS Mode of arrival: EMS Limitations: no limitations History of Present Illness HPI Narrative: This is a 54-year-old male with history of CAD status post stent who presents the ED for shortness of breath. Patient states that he had a cardiac stent placed 9 months ago and was doing 1 of the his 1st few workouts on his own this week when he became short of breath felt off. He called EMS. On arrival, patient was 80/50 and was given some fluids With improvement of his blood pressure 106/60. He states that his symptoms have improved since then. Denies fevers, chills, cough, congestion, chest pain. Related Data Allergies Allergy/AdvReac Type Severity Reaction Status Date / Time No Known Allergies Allergy Verified 12/14/24 20:28 Review of Systems 2 Review of Systems: Gen.: Denies fevers or chills Eyes: Denies eye pain or visual change ENT: Denies congestion Respiratory: As per HPI CV: Denies chest pain or palpitations GI: Denies abdominal pain nausea, emesis or diarrhea denies burning, urgency, frequency or hematuria Musculoskeletal: Denies back pain or muscle pain Neuro: Denies numbness, tingling, weakness or focal weakness Skin: Denies rash Except as documented, all other systems reviewed and negative [facility] Social History Social History Smoking packs per day: 1.5 Smoking cigarettes per day: 30.0 Years smoked: 30 Smoking pack-years: 45.00 Tobacco type: cigarettes Alcohol intake: never Substance use: never Do You Feel Safe in your Home?: Yes Lack of Transportation: YES Lack of Food: Never True Current Housing: I Have Housing Concerned About Future Housing: No Difficulty Paying Gas/Electric Bills: No Difficulty Paying for Meds: No Currently Unemployed: No Education: Bachelor's Degree Difficulty w/ Childcare or Family Care: No Spiritual care concerns: No Exam 2 Narrative: APPEARANCE: No acute distress, nontoxic, resting in bed EYES: EOMI HEENT: Normocephalic, atraumatic, OMM RESPIRATORY: No respiratory distress Clear to auscultation bilaterally with no rhonchi wheezing or rales. CARDIOVASCULAR: Regular rate and rhythm without murmurs rubs or gallops. ABDOMINAL: Soft, nontender, nondistended, no rebound or guarding MUSCULOSKELETAl: Moves all extremities. No clubbing, cyanosis or edema. NEURO: Awake and alert. Following commands, speech normal, no focal deficits SKIN:: Warm, dry. No rashes lesions or abrasions PSYCHIATRIC: Normal affect/mood, Course Vital Signs Vital signs: Vital Signs Pulse Rate 96 08/19/25 16:18 Respiratory Rate 19 08/19/25 16:18 Blood Pressure 97/78 L 08/19/25 16:18 Pulse Oximetry 96 08/19/25 16:18 Oxygen Delivery Room Air 08/19/25 16:18 Pulse Rate 60 08/19/25 20:18 Respiratory Rate 15 08/19/25 20:18 Blood Pressure 101/73 08/19/25 20:18 Pulse Oximetry 98 08/19/25 20:18 Oxygen Delivery Room Air 08/19/25 16:18 MDM - SOB/Dyspnea MDM Narrative Medical decision making narrative: 54-year-old male Presenting for shortness of breath while working out. On initial evaluation patient was in no acute distress, afebrile, hemodynamic stable. Differentials include but are not limited to: ACS, CHF Exacerbation, COPD exacerbation, PE, PNA, PTX, bronchitis, viral syndrome Notable exam findings: Heart and lungs clear. No respiratory distress Notable lab findings: CBC and CMP without significant abnormalities. Notable imaging findings: Chest x-ray showed no acute process. EKGs showed no acute changes Patient may have had a stable anginal equivalent as the cause of his symptoms. He had 2 negative troponins. I discussed the case with on-call Cardiology, Dr. Barakat, feels that the patient can be safely discharged at this time given the negative troponins but with close cardiology follow-up. Advised patient to call the clinic in the morning to schedule appointment in the next couple days and advised the patient Osborne exercises until clearance by Cardiology. Discussed this with the patient and he is agreeable to this given strict return precautions. Medical Records Attestation: I reviewed the patient's medical records. Lab Data Attestation: I reviewed the patient's lab results. 08/19/25 16:24 08/19/25 16:24 Labs: Lab Results 08/19/25 08/19/25 08/19/25 Range/Units 16:23 16:24 19:24 WBC 9.7 (4.5-10.0) K/mm3 RBC 4.99 (4.6-6.20) M/mm3 Hgb 13.9 L (14.0-18.0) g/dL Hct 42.1 (42.0-52.0) % MCV 84.4 (80-100) fl MCH 27.9 (26-34) pg MCHC 33.0 (32-36) g/dl RDW 12.8 (11.5-14.5) % Plt Count 190 (150-375) k/mm3 MPV 10.9 H (7.4-10.4) fl Immature Gran % (Auto) 0.2 (0-0.5) % Neut % (Auto) 72.9 (45.5-73.1) % Lymph % (Auto) 20.1 (18.3-44.2) % [place] % (Auto) 6.3 (2.6-8.5) % Eos % (Auto) 0.3 (0-4.4) % Baso % (Auto) 0.2 (0.2-1.2) % Lymph # (Auto) 1.95 (0.9-3.2) K/mm3 [place] # (Auto) 0.6 (0.1-0.6) K/mm3 Eos # (Auto) 0.0 (0-0.3) K/mm3 Baso # (Auto) 0.0 (0.0-0.1) K/mm3 Abs Immat Gran (auto) 0.02 (0.00-0.031) K/mm3 Absolute Neuts (auto) 7.1 H (1.3-6.7) K/mm3 Absolute Nucleated RBC 0.000 (0.0-0.012) K/mm3 Nucleated RBC % 0.0 (0.0-0.2) % Sodium 135 L (137-145) mmol/L Potassium 4.9 (3.4-5.0) mmol/L Chloride 99 (98-107) mmol/L Carbon Dioxide 28 (22-30) mmol/L Anion Gap 8 (4-12) mmol/L BUN 14 (9-20) mg/dL Creatinine 1.37 H (0.7-1.3) mg/dL Estim Creat Clear Calc Not Reportable Estimated GFR 54 L (59 - ) Glucose 106 (65-110) mg/dL Calcium 10.3 H (8.4-10.2) mg/dL Total Bilirubin 0.8 (0.2-1.3) mg/dL AST 41 (17-59) U/L ALT 39 (6-50) U/L Alkaline Phosphatase 81 (38-126) U/L Troponin I 0.015 < 0.012 D (0.000-0.034) ng/mL Total Protein 7.9 (6.3-8.2) g/dL Albumin 4.7 (3.5-5.1) g/dL Imaging Data Attestation: I personally reviewed and interpreted this imaging study as follows: My impression: Chest x-ray: Normal cardiac silhouette, no consolidations, no pleural effusions, no pulmonary vascular congestion Radiologist's impression: Impressions Chest X-Ray 08/19/25 16:35 Impression: No acute cardiopulmonary abnormality. ECG Data EKG #1: Attestation: I personally reviewed and interpreted this ECG as follows: ECG completion date: 08/19/25 ECG completion time: 16:24 Interpretation: Normal sinus rhythm rate of 62, left axis deviation, early repolarization, tall T-waves, comparison December 2024, no significant change EKG #2: Attestation: I personally reviewed and interpreted this ECG as follows: ECG completion date: 08/19/25 ECG completion time: 20:16 Interpretation: Sinus bradycardia rate of 59, left axis deviation, tall T-waves, no ST changes. Comparison from earlier: No significant change Discharge Plan Discharge Clinical Impression: Shortness of breath, CAD (coronary artery disease) Patient Disposition: Home Condition: Stable Instructions: Antibiotic Form, Shortness of Breath (ED) Additional Instructions: Call the head of science's office in the morning to schedule appointment in the next couple days. Continue to take your medications as prescribed. Return to the ED for any new or worsening symptoms. Patient Language: Bahraini Prescriptions: No Action atorvastatin 40 mg Tablet 80 mg PO DAILY Qty: 90 5RF aspirin 81 mg Tablet,Delayed Release (Dr/Ec) 81 mg PO QAM Qty: 30 5RF losartan 25 mg Tablet 25 mg PO DAILY Qty: 90 5RF metoprolol succinate [Toprol XL] 25 mg Tablet Extended Release 24 Hr 25 mg PO QAM Qty: 90 5RF Brilinta 90 mg Tablet 90 mg PO Q12HR Qty: 180 5RF Follow-up/Referrals: Simba Barakat MD [Physician, Cardiology] PHYSICIAN NOT ON STAFF,NONSTAFF [Non-Staff]
[2025-08-19 19:46] LABS: Troponin I 0.015 ng/mL (0.000-0.034)
--- OUTSIDE RECORDS SUMMARY | 2025-08-19 19:47 | XMS_ITS | Clinical Summary ---
Author Organization [facility] Address [address] [place] [address] Phone Care Team Providers Care Sales Contractor Name Role Phone Provider, None Primary Care Provider Unavailabl e Allergies No known active allergies Medications meclizine (ANTIVERT) 25 MG Tablet Take 1 Tablet by mouth 3 times daily as needed for Dizziness. 20 Tablet 12/30/2024 Active ondansetron (ZOFRAN) 4 MG Tablet Take 1-2 Tablets by mouth every 8 hours as needed for Nausea - 1st line. 20 Tablet 12/30/2024 Active atorvastatin (LIPITOR) 40 MG Tablet Take 80 mg by mouth daily. 12/16/2024 Active losartan (COZAAR) 25 MG Tablet Take 25 mg by mouth daily. 12/16/2024 Active metoprolol Succinate (TOPROL-XL) 25 MG TABLET SR 24 HR Take 50 mg by mouth every morning. 12/16/2024 Active aspirin EC 81 MG Tablet Delayed Response Take 81 mg by mouth daily. Active Active Problems Problem Noted Date Diagnosed Date Dizziness 12/30/2024 CAD S/P percutaneous coronary angioplasty 2024 Vomiting 12/30/2024 Elevated troponin 12/30/2024 Tobacco abuse 12/30/2024 Leukocytosis 12/30/2024 Hypokalemia 12/30/2024 Social History Tobacco Use Types Packs/Day Years Used Date Smoking Tobacco: Every Day Cigarettes Tobacco Cessation:Ready to Q uit: Not Asked; Counseling Given: Not Answered Alcohol Use Standard Drinks/Week Comments Never 0 (1 standard drink = 0.6 oz pur e alcohol) [facility] Utilities Answer Date Recorded In the past 12 months has e [employer], gas, oil, or water company threatened to shut off services in your home? No 12/30/2024 Hunger Vital Sign Answer Date Recorded Within the past 12 months, y ou worried that your food would run out before you got the money to buy more. Never true 12/31/19 25 Within the past 12 months, t he food you bought just didn't last and you didn't have money to get more. Never true 12/30/2024 PRAPARE - Transportation Answer Date Re corded In the past 12 months, has l ack of transportation kept you from medical appointments or from getting medications? No 12/09 In the past 12 months, has l ack of transportation kept you from meetings, work, or from getting things needed for daily living? No 12/30/2024 Housing Stability Vital Sign Answer Daniel e Recorded In the last 12 months, was t here a time when you were not able to pay the mortgage or rent on time? No 12/30/2024 In the past 12 months, how m any times have you moved where you were living? 0 12/30/2024 At any time in the past 12 m [facility], were you homeless or living in a chcf (including now)? No 12/30/2024 Sex and Gender Information Value Date Recorded Sex Assigned at Not on file Legal Sex Male 5:41 AM CDT Gender Identity Not on file Sexual Orientation Not on file Last Filed Vital Signs Vital Sign Reading Time Taken Comments Blood Pressure 102/61 12/31/2024 1:15 PM CDT Pulse 62 12/31/2024 1:15 PM CDT Temperature 36.8 C (98.2 F) 12/31/2024 1:15 PM CDT Respiratory Rate 18 12/31/2024 1:15 PM CDT Oxygen Saturation 97% 12/31/2024 1:15 PM CDT Inhaled Oxygen Concentration - - Weight 90.7 kg (200 lb) 12/30/2024 10:58 AM CDT Height 175.3 cm (5' 9) 12/30/2024 10:58 AM CDT Body Mass Index 29.53 12/30/2024 10:58 AM CDT Plan of Treatment Health Maintenance Due Date Last Done Comments Hepatitis C Virus (HCV) Screening 1970 TdaP Immunization 1970 Hepatitis B Immunization (1 of 3 - 19+ 3-dose series) 1989 Pneumococcal Immunization (5 0+ years) (1 of 2 - PCV) 1989 Cologuard 2015 Colonoscopy 2015 Colorectal Cancer Screening 2015 Immunochemical Fecal Occult Blood 2015 Zoster Immunization (1 of 2) 2020 Influenza Immunization (#1) 2025 SARS-COV-2 Immunization (2 - season) 2025 02/08/2021 Respiratory Syncytial Virus (RSV) Immunization (Adult) (1 - 1-dose 75+ series) 2045 Human Papillomavirus (HPV) Immunization Aged Out No longer eligible b ased on patient's age to complete this topic Meningococcal Immunization (ACWY) Aged Out No longer eligible based on patient's age to complete this topic Rotavirus Immunization Aged Out No lo nger eligible based on patient's age to complete this topic Advance Directives * Full Code (Latest Code Status on File) Date Activated Date Inactivated Comments 12/30/2024 11:30 AM CPR-Full Melodie tment: FULL ARREST: Attempt Resuscitation/CPR wit intubation and mechanical ventilation. PRE-ARREST: Use entire range of life support measures to stabilize the patient. Care Teams Sales Contractor Relationship Specialty Start Date End Date Provider, None [place] PCP - General 12/30/24
[2025-08-19 19:55] LABS: Troponin I < 0.012 ng/mL (0.000-0.034)
--- NOTE | 2025-08-19 20:02 | ECG_ITS ---
Test Date: 2025-08-19 20:16:40 Measurements Intervals [place] Rate: 59 P: 43 NM: 170 QRS: -35 QRSD: 124 T: 12 QT: 387 QTc: 386 Interpretive Statements SINUS BRADYCARDIA LEFT AXIS DEVIATION [QRS AXIS < -30] RIGHT BUNDLE BRANCH BLOCK [120+ ms QRS DURATION, UPRIGHT V1, 40+ ms S IN I/aVL/V4/V5/V6] Electronically Signed On 08-20-2025 17:33:30 ARCHITECT by Ramiro Marin M.D.
[2025-08-19 20:18] VITALS: BP 101/73; PULSE 60; RESP 15; O2SAT 98
== END 2025-08-19 20:56 | disposition home or self-care (01) ==
PROVIDERS: Emergency Medicine; Emergency Provider Student in an Organized Health Care Education/Training Program
DX: R06.02 Shortness of breath (principal); I25.10 Atherosclerotic heart disease of native coronary artery without angina pectoris; R00.1 Bradycardia, unspecified; I45.10 Unspecified right bundle-branch block; F17.210 Nicotine dependence, cigarettes, uncomplicated; Z95.5 Presence of coronary angioplasty implant and graft
CPT/HCPCS: 36415; 71045; 80053; 84484; 85025; 93005; 99284